=== PATIENT | female | born 1965 | race Caucasian/White ===

== ENCOUNTER 2019-07-31 19:55 | Observation (INO) ==
[2019-07-31 21:05] LABS: Basophils # 0.1 10*3/uL (0.0-0.2); Basophils % 0.7 % (0.0-0.8); Eosinophils # 0.1 10*3/uL (0.0-0.87); Eosinophils % 0.7 % (0.00-10.9); Hematocrit 44.3 VOL% (35.7-47.0); Hemoglobin 14.3 GM/DL (12.0-16.0); Immature Granulocytes % 0.3 %; Immature Granulocytes Absolute 0.02 #; Lymphocytes # 1.1 10*3/uL (1.4-4.0); Mean Corpuscular HGB Conc 32.3 GM/DL (32-36); Mean Corpuscular Volume 91.3 FL (87-102); Mean Platelet Volume 10.6 FL (9.6-12.0); Monocytes % 4.7 % (1.7-12.7); Neutrophils % 78.6 % (38.7-73.9); Platelet Count 172 T/CUMM (130-400); Red Blood Count 4.85 MC/CUMM (3.8-5.5); Red Cell Distribution Width 15.5 % (9.3-17.3); White Blood Count 7.4 T/CUMM (4-12)
[2019-07-31 21:19] LABS: Amorphous Crystals,Urine Occasional /HPF (Few); Apearance,Urine CLOUDY (Clear); Bilirubin,Urine Negative (Negative); Blood, Urine Small mg/dL (Negative); Glucose,Urine (UA) Negative (Negative); Hyaline Casts,Urine 1 /LPF (0-3); Ketones,Urine Negative (Negative); Mucus,Urine Occasional /LPF (Occasional); Nitrite,Urine Negative (Negative); Protein,Urine Negative; RBC,Urine 4 /HPF (0-4); Squamous Epithelial Cell,Urine Occasional /HPF (0-10); Urine Color Yellow (Yellow); Urine Specific Gravity 1.013 (1.001-1.035); Urine Urobilinogen < 2.0 EU/DL (0.2-1.0)
[2019-07-31 21:22] LABS: Bilirubin,Total 0.8 MG/DL (0.2-1.0); Calcium 10.1 MG/DL (8.5-10.1); Osmolality,Calculated 270.1 MOS/KG (273-304); Total Protein 6.7 G/DL (6.4-8.3)
[2019-07-31] MEDS ORDERED: HYDROmorphone 2 MG/1 ML VIAL IV STA (22:49)
[2019-07-31] MEDS ORDERED: ONDANSETRON 4 MG/2 ML VIAL IV STA (22:49)
[2019-07-31] MEDS ORDERED: PROMETHAZINE 25 MG/1 ML VIAL IM PRN (23:34)
[2019-07-31] MEDS ORDERED: diphenhydrAMINE CAP 25 MG CAPSULE PO PRN (23:34)
[2019-07-31] MEDS ORDERED: ALBUTEROL 2.5 MG/3 ML NEB RESP TX PRN (23:34)
[2019-07-31] MEDS ORDERED: hydrALAZINE 20 MG/1 ML VIAL IV PRN (23:34)
[2019-07-31] MEDS ORDERED: guaiFENesin/DM ER 600-30 MG TABLET PO PRN (23:34)
[2019-07-31] MEDS ORDERED: ACETAMINOPHEN 325 MG TABLET PO PRN (23:34)
[2019-07-31] MEDS ORDERED: ZALEPLON 5 MG CAPSULE PO PRN (23:34)
[2019-07-31] MEDS ORDERED: GLUCAGON 1 MG VIAL IM PRN (23:34)
[2019-07-31] MEDS ORDERED: DEXTROSE 10% 250 ML BAG IV PRN (23:40)
[2019-08-01] MEDS: amLODIPine 5 MG TABLET PO SCH ×2 (01:01→08:42)
[2019-08-01 06:16] LABS: Basophils % 0.2 % (0.0-0.8); Hemoglobin 14.5 GM/DL (12.0-16.0); Immature Granulocytes % 0.7 %; Immature Granulocytes Absolute 0.06 #; Lymphocytes # 0.8 10*3/uL (1.4-4.0); Lymphocytes % 9.1 % (21.3-54.2); Mean Corpuscular HGB Conc 31.5 GM/DL (32-36); Mean Corpuscular Volume 94.5 FL (87-102); Mean Platelet Volume 10.8 FL (9.6-12.0); Monocytes % 5.5 % (1.7-12.7); Neutrophils % 84.5 % (38.7-73.9); Platelet Count 154 T/CUMM (130-400); Red Blood Count 4.87 MC/CUMM (3.8-5.5); Red Cell Distribution Width 15.9 % (9.3-17.3); White Blood Count 9.1 T/CUMM (4-12)
[2019-08-01 06:55] LABS: Albumin 2.7 G/DL (3.4-5.0); Bilirubin,Total 0.6 MG/DL (0.2-1.0); Calcium 9.6 MG/DL (8.5-10.1); Osmolality,Calculated 270.1 MOS/KG (273-304); Total Protein 6.2 G/DL (6.4-8.3)
[2019-08-01] MEDS: DOCUSATE SODIUM 100 MG CAPSULE PO SCH ×2 (08:45→21:00)
[2019-08-01] MEDS: PANTOPRAZOLE 40 MG TABLET PO SCH (08:45)
[2019-08-01] MEDS: NICOTINE 21 MG/24 HR PATCH TRANSDERM SCH (08:46)
[2019-08-01] MEDS: ENOXAPARIN 40 MG/0.4 ML SYRINGE SUBCUT SCH ×2 (08:46→08:56)
[2019-08-01] MEDS: MORPHINE 4 MG/1 ML VIAL IV PRN (08:55)
[2019-08-01 10:13] LABS: PT Patient Result 11.1 SECS (9.8-11.9); Partial Thromboplastin Time 27.9 SECS (23.9-33.8)
[2019-08-01] MEDS ORDERED: fentaNYL 12 MCG/HR PATCH TRANSDERM SCH (13:00)
[2019-08-02] MEDS: ONDANSETRON 4 MG/2 ML VIAL IV PRN ×2 (07:45→16:57)
[2019-08-02] MEDS: MORPHINE 4 MG/1 ML VIAL IV PRN ×2 (07:45→16:57)
[2019-08-02 07:52] LABS: Hepatitis B Core IgM Quant 0.37 Index; Hepatitis B Surface Ag Quant < 0.10 Index; Hepatitis B Surface Ag Result Negative (Negative); Hepatitis C Virus Ab Quant 0.05 Index; Hepatitis C Virus Ab Result Negative (Negative)
[2019-08-02] MEDS: NICOTINE 21 MG/24 HR PATCH TRANSDERM SCH (09:24)
[2019-08-02] MEDS: amLODIPine 5 MG TABLET PO SCH (09:25)
[2019-08-02] MEDS ORDERED: DIAZEPAM 5 MG TABLET PO ONE (09:58)
[2019-08-02] MEDS: PANTOPRAZOLE 40 MG TABLET PO SCH (12:39)
[2019-08-02] MEDS: DOCUSATE SODIUM 100 MG CAPSULE PO SCH (12:39)
[2019-08-02 15:52] VITALS: BP 120/57
== END 2019-08-02 18:25 | disposition home or self-care (01) ==
LOC: N.ED 19:55 → N.EDINP 23:34 → INTOOBSV 23:34 → SUATTDRO 23:34 → N.TELES 23:52
PROVIDERS: ADMIT Internal Medicine; ATTEND Internal Medicine